=== PATIENT | female | born 1975 | race Caucasian/White ===

== ENCOUNTER 2017-07-16 14:00 | Inpatient (IN) ==
[2017-07-16 16:02] LABS: Appearance,Urine HAZY; Bilirubin,Urine NEG (NEG); Color,Urine YELLOW; Glucose,Urine (UA) NEGATIVE (NEG); Leukocyte Esterase,Urine NEG /uL (NEG); Nitrate,Urine NEG (NEG); Protein,Urine NEG (NEG); Specific Gravity,Urine 1.024 (1.000-1.035); Urine Blood NEG mg/dL (<0.03); Urobilinogen,Urine NEG (NEG)
[2017-07-16 17:09] LABS: Basophils # (Auto) 0 K/mcL (0.0-0.3); Basophils % (Auto) 0.8 % (0.0-2.0); Eosinophils # (Auto) 0.3 K/mcL (0.0-0.7); Eosinophils % (Auto) 4.5 % (0.0-7.0); Granulocytes % (Auto) 45.7 % (38.0-78.0); Lymphocytes # (Auto) 2.4 K/mcL (1.5-4.8); Lymphocytes % (Auto) 40.6 % (15.5-49.0); Mean Cell Volume 77.9 fL (80.0-100.0); Mean Corpuscular HGB Conc 32.7 g/dL (31.0-36.0); Mean Corpuscular Hemoglobin 25.5 pg (26.0-34.0); Monocytes # (Auto) 0.5 K/mcL (0.1-0.9); Monocytes % (Auto) 8.4 % (1.0-12.0); Platelet Count 220 K/mcL (140-440); RBC 4.04 M/mcL (4.00-5.20); Red Cell Distribution Width 17.4 % (11.5-14.5)
[2017-07-16 17:24] LABS: Blood Urea Nitrogen 9 mg/dl (6-20)
[2017-07-16 17:35] LABS: HCG,Serum NEGATIVE <10 (<10 mIU/ml)
[2017-07-20] MEDS ORDERED: ACETAMINOPHEN 500 MG TABLET PO SCH (05:00)
[2017-07-20] MEDS ORDERED: CELECOXIB 200 MG CAPSULE PO SCH (05:00)
[2017-07-20] MEDS ORDERED: PREGABALIN 75 MG CAPSULE PO SCH (05:00)
[2017-07-20] MEDS ORDERED: ceFAZolin 1 GM VIAL IV SCH (05:00)
[2017-07-20] MEDS ORDERED: oxyCODONE 10 MG TAB.ER.12H PO SCH (05:00)
[2017-07-20] MEDS ORDERED: KETOROLAC 30 MG, ROPIVACAINE HCL/PF 49.5 ML, EPINEPHrine 0.5 MG, 0.9 % SODIUM CHLORIDE ... IJ SCH (06:30)
[2017-07-20] MEDS ORDERED: GENTAMICIN SULFATE 800 MG/20 ML VIAL IR ONE (13:26)
[2017-07-20] MEDS ORDERED: BENZOCAINE/MENTHOL 1 LOZENGE PO PRN ×2 (13:33→14:37)
[2017-07-20] MEDS ORDERED: POLYETHYLENE GLYCOL 3350 17 GM PACKET PO PRN (13:33)
[2017-07-20] MEDS ORDERED: BISACODYL 10 MG SUPP.RECT PR PRN (13:33)
[2017-07-20] MEDS ORDERED: MAGNESIUM HYDROXIDE 30 ML ORAL.SUSP PO PRN (13:33)
[2017-07-20] MEDS ORDERED: HYDROcodone/APAP 10/325MG TABLET PO PRN (13:33)
[2017-07-20] MEDS ORDERED: FLEETS ADULT ENEMA PR PRN (13:33)
[2017-07-20] MEDS ORDERED: ONDANSETRON 4 MG/2 ML VIAL IV PRN ×2 (13:33→14:37)
[2017-07-20] MEDS ORDERED: TEMAZEPAM 15 MG CAPSULE PO PRN (13:33)
[2017-07-20] MEDS ORDERED: ACETAMINOPHEN 325 MG TABLET PO PRN (13:33)
[2017-07-20] MEDS ORDERED: TRANEXAMIC ACID 1,000 MG/10 ML VIAL IV ONE (13:33)
--- NOTE | 2017-07-20 13:33 | Brief Operative Note ---
Date of procedure: 07/20/17 Pre-op diagnosis: left djd Post-op diagnosis: same Procedure: left tka Grafts/Implants: Yes Anesthesia: GETA Complications: none Complications Description: 07/20/17 13:33 none Surgeon: Travis Sinha [employer] Official: Rafy Singer Estimated blood loss (cc): 50 Tourniquet Time (Minutes): 52 Specimens Removed/Pathology: none sent Condition: stable Disposition: PACU
[2017-07-20] MEDS ORDERED: fentaNYL 100 MCG/2 ML VIAL IV ONE (13:45)
[2017-07-20] MEDS ORDERED: DEXAMETHASONE 10 MG/ML VIAL IV ONE (13:45)
[2017-07-20] MEDS ORDERED: ONDANSETRON 4 MG/2 ML VIAL IV ONE (13:45)
[2017-07-20] MEDS ORDERED: MIDAZOLAM 2 MG/2 ML VIAL IV ONE (13:45)
[2017-07-20] MEDS ORDERED: PROPOFOL 200 MG/20 ML VIAL IV ONE (13:45)
[2017-07-20] MEDS ORDERED: ePHEDrine 50 MG/ML AMPUL IV ONE (13:45)
[2017-07-20] MEDS ORDERED: ROPIVACAINE HCL/PF 20 ML VIAL IJ ONE (13:45)
--- NOTE | 2017-07-20 14:11 | General Surgery Progress Note ---
Subjective Narrative: Note initiated : 07/20/17 at 2:02 pm Service Date, if different from initiated Date: [] Patient: Hilda Trorez 42 y/o F admitted on 07/20/17 for Left Total Knee Arthroplasty Dwight. Chief Complaint: [] Objective Temp Pulse Resp BP Pulse Ox 98 F 75 81 H 118/70 98 07/20/17 10:09 07/16/17 14:27 07/20/17 10:09 07/20/17 10:09 07/20/17 10:09 - Additional Data Intake & Output - Last 24 hours: Intake & Output 07/18/17 07/19/17 07/20/17 07/21/17 05:59 05:59 05:59 05:59 Weight 187 lb - Labs 07/16/17 14:53 07/16/17 14:53 Assessment and Plan - Narrative A/P Narrative: Anesthesia evaluation: Responded to patient's bedside for evaluation pre-operatively regarding nursing concerns of erratic behavior and past drug abuse. Patient was questioned about recent drug use and admitted to using methamphetamines on once occasion within the last week. Patient was counseled about the risk of anesthesia complications with regards to concurrent drug abuse and voiced understanding. The patient denies any further illicit drug use. Dr. Sinha was informed of these findings. A urine toxicology screen was considered in order to determine if the patient is acutely intoxicated, however, Dr. Sinha feels that at this time the patient is at a low risk and wishes to proceed with surgery without delaying for a toxicology screen. The patient also voiced understanding of the risks associated with proceeding to surgery and wishes to do so at this time. - Time Spent With Patient Total time spent is greater than 50% in coordination of care (as documented) at patient's floor/unit and/or counseling patient: 15 - 24 minutes
[2017-07-20] MEDS ORDERED: VANCOMYCIN 1,000 MG in 0.9 % SODIUM CHLORIDE 250 ML IV ONE (14:30)
[2017-07-20] MEDS ORDERED: FLUMAZENIL 0.1 MG/ML ML IV PRN (14:37)
[2017-07-20] MEDS ORDERED: PROMETHAZINE 25 MG/ML VIAL IV PRN (14:37)
[2017-07-20] MEDS ORDERED: NALOXONE HCL 0.4 MG/ML VIAL IV PRN (14:37)
[2017-07-20] MEDS ORDERED: METOPROLOL TARTRATE 5 MG/5 ML VIAL IV PRN (14:37)
[2017-07-20] MEDS ORDERED: IPRATROPIUM/ALBUTEROL 3 ML AMPUL.NEB NEB PRN (14:37)
[2017-07-20] MEDS ORDERED: METHOCARBAMOL 1,000 MG/10 ML VIAL IV PRN (14:37)
[2017-07-20] MEDS ORDERED: ePHEDrine 50 MG/ML AMPUL IV PRN (14:37)
[2017-07-20] MEDS ORDERED: HYDROmorphone 2 MG/ML SYRINGE IV PRN (14:37)
[2017-07-20] MEDS ORDERED: ATROPINE SULFATE 0.4 MG/ML VIAL IV PRN (14:37)
[2017-07-20] MEDS ORDERED: diphenhydrAMINE 50 MG/ML VIAL IV PRN (14:37)
[2017-07-20] MEDS ORDERED: LACTATED RINGERS 1,000 ML IV SCH (14:45)
[2017-07-20] MEDS: fentaNYL 100 MCG/2 ML VIAL IV PRN ×3 (15:35→15:57)
[2017-07-20] MEDS: 0.9 % SODIUM CHLORIDE 10 ML SYRINGE IV SCH ×2 (15:53→22:00)
--- NOTE | 2017-07-20 16:02 | Operative Note ---
DATE OF OPERATION: 07/20/2017 PREOPERATIVE DIAGNOSIS: Left knee degenerative arthritis. POSTOPERATIVE DIAGNOSES: Left knee degenerative arthritis with the addition of arthritis in all compartments. PROCEDURE: Left total knee arthroplasty. SURGEON: Travis Sinha M.D. ORAL SURGERY PHYSICIAN: Rafy Singer PA-C. ANESTHESIA: General LMA anesthesia. ROUTE CLERK: Lissy Duarte CRNA. TOURNIQUET TIME: 52 minutes. COMPLICATIONS: None. DESCRIPTION OF PROCEDURE: The patient was brought to the operating room and put to sleep with general LMA anesthesia. Once asleep, the patient had the left leg sterilely prepped and draped in the usual sterile fashion, confirmed as the operative site. Preop antibiotics of vancomycin and Ancef had been given and then tranexamic acid of 1 gram. Once done, we then exsanguinated the leg and inflated the tourniquet to 250 pounds of pressure. Midline incision was made. A mid vastus approach performed. Once this was done, we then inspected the mid vastus approach and inspected the joint with severe arthritis in the lateral compartment and the posterior medial compartment, and to a lesser degree the patellofemoral joint. The ACL and PCL were intact. At this point, we proceeded with a robotic total knee. We then placed two pins above and below the knee. One intraarticular pin into the femur and one into the tibia. The center of hip rotation was set. Medial and lateral malleolus was set. Thirty points on the femur, thirty points on the tibia were set. We balanced the knee at 15 and 90 degrees both medial and lateral. The implant was adjusted with 3 degrees of external rotation to completely balance within flexion-extension gaps. She was at 0 degrees extension and 2 degrees of varus. At this point, we then brought the robot in, registered the robot, and made the distal femoral cut. We made our anterior and posterior chamfer cuts, made our tibial cut. We removed the remnants of the meniscus and removed a cyst medially. We then irrigated thoroughly and then punched into place a size 3 tibial baseplate and size 3 femur. A 9 mm poly and a 33 mm patellar button was used. She measured 21 mm. This was cut to 13 and then the patellar button was placed. It covered the patella very nicely. We irrigated thoroughly and then cemented into place the above-mentioned sizes with antibiotic cement. Excess cement was removed. We preserved the posterior cruciate ligament and then closed the mid vastus approach with #1 Stratafix x2 sutures, nice medial capsular closure. We closed the skin with 2-0 Vicryl and adhesive closure. The patient tolerated this well without complication. Tourniquet time was 52 minutes. TOTAL TOURNIQUET TIME: 52 minutes. RBH:eron Job ID: [id number] Doc ID: [id number] Travis Sinha MD
[2017-07-20] MEDS ORDERED: MEPERIDINE 50 MG/ML SYRINGE ONE (16:19)
--- NOTE | 2017-07-20 16:44 | XRay Report ---
CLINICAL INFORMATION: Postop total knee prostheses COMPARISON: None. FINDINGS: Total knee prostheses is anatomically aligned. No osseous abnormalities. Periarticular gas and soft tissue swelling seen as expected. IMPRESSION: Negative Interpreted and Authenticated by: Roe Godoy 07/20/17
[2017-07-20] MEDS: 0.45 % SODIUM CHLORIDE 1,000 ML IV SCH (17:01)
[2017-07-20] MEDS: oxyCODONE/APAP 5/325MG TABLET PO PRN ×2 (17:02→21:42)
[2017-07-20] MEDS: HYDROmorphone 2 MG/ML SYRINGE IV PRN ×3 (17:03→21:59)
[2017-07-20] MEDS: KETOROLAC 15 MG/ML VIAL IV SCH ×2 (18:01→23:44)
[2017-07-20] MEDS ORDERED: SENNOSIDES 1 TABLET PO SCH (21:00)
[2017-07-20] MEDS: ASPIRIN 325 MG ENTERIC COATED TABLET PO SCH (21:41)
[2017-07-20] MEDS: ceFAZolin 1 GM VIAL IV SCH (21:42)
[2017-07-20] MEDS: DOCUSATE SODIUM 100 MG CAPSULE PO SCH (21:42)
[2017-07-21] MEDS: HYDROmorphone 2 MG/ML SYRINGE IV PRN ×3 (00:33→06:39)
[2017-07-21] MEDS: 0.45 % SODIUM CHLORIDE 1,000 ML IV SCH ×2 (01:48→10:28)
[2017-07-21] MEDS: ceFAZolin 1 GM VIAL IV SCH (04:39)
[2017-07-21] MEDS: KETOROLAC 15 MG/ML VIAL IV SCH ×2 (06:05→11:21)
[2017-07-21] MEDS: 0.9 % SODIUM CHLORIDE 10 ML SYRINGE IV SCH (06:05)
--- NOTE | 2017-07-21 07:44 | Orthopedic Progress Note ---
Subjective Patient information: Note initiated : 07/21/17 at 7:43 am Service Date, if different from initiated Date: [] Patient: Hilda Torrez 42 y/o F admitted on 07/20/17 for Left Total Knee Arthroplasty Dwight. Chief Complaint: [Pt is stable this morning on post operative day 1 without any significant concerns or complaints. Patients vital signs have remained stable. Patients dressing is dry and exhibits a grossly intact neurovascular and neuromotor exam. Patients 10 point ROS is otherwise negative. ] Objective Vital signs: Vital Signs Temp Pulse Resp BP Pulse Ox 07/21/17 03:36 97.5 F 64 12 113/67 97 07/21/17 03:00 97 07/21/17 00:00 97.8 F 78 12 116/69 95 07/20/17 23:00 95 07/20/17 19:58 100 07/20/17 19:54 99 07/20/17 19:41 99 07/20/17 19:40 99 07/20/17 19:30 97.3 F 88 12 119/77 94 07/20/17 18:30 92 H 118/77 96 07/20/17 18:00 94 H 131/82 99 07/20/17 17:30 125/82 96 07/20/17 17:15 129/86 96 07/20/17 17:00 129/85 97 07/20/17 16:45 137/81 100 07/20/17 16:30 127/78 100 07/20/17 16:21 90 15 139/88 96 07/20/17 16:05 85 12 132/82 98 07/20/17 15:50 89 14 129/77 99 07/20/17 15:35 110 H 15 127/84 99 07/20/17 10:09 98 F 81 H 118/70 98 Intake and Output 07/20/17 07/21/17 07/21/17 21:59 05:59 13:59 Intake Total 2330 / 2330 1078 / 1078 Output Total 50 / 50 1400 / 1400 Balance 2280 / 2280 -322 / -322 Intake: IV 878 / 878 Sodium Chloride 0.45% 1,000 ml 878 / 878 @ 100 mls/hr IV .Q10H [facility] Rx#: [id number] Oral 330 / 330 200 / 200 IV - Manual Only 1999 Output: Urine Catheter Amount 500 / 500 Void Amount 900 / 900 Estimated Blood Loss 50 / 50 Other: Meal Paxton, Jello Percent of Meal Consumed 100% Feeding Ability Independent Weight 194 lb 8 oz Intake & Output: Intake & Output 07/20/17 07/21/17 07/21/17 21:59 05:59 13:59 Intake Total 2330 / 2330 1078 / 1078 Output Total 50 / 50 1400 / 1400 Balance 2280 / 2280 -322 / -322 Weight 194 lb 8 oz Intake: IV 878 / 878 Sodium Chloride 0.45% 1,000 ml 878 / 878 @ 100 mls/hr IV .Q10H [facility] Rx#: [id number] Oral 330 / 330 200 / 200 IV - Manual Only 1999 Output: Urine Catheter Amount 500 / 500 Void Amount 900 / 900 Estimated Blood Loss 50 / 50 Other: Meal Paxton, Jello Percent of Meal Consumed 100% Feeding Ability Independent Incision: Yes healing Incision clean and dry: Yes Dressing: Yes clean, Yes dry Weight bearing status: full Neurological exam IM: Yes motor sensory intact, Yes neurovascular intact Extremities exam IM: Yes Foot pink and warm, Yes neurovascular intact - Labs CBC & BMP: 07/21/17 05:30 07/16/17 14:53 Labs: Orthopedic Labs 07/16/17 14:53 PT 12.2 INR 0.9 APTT 33 07/21/17 07/16/17 05:30 14:53 Hgb 10.3 L Hct 28.0 L 31.4 L Assessment and Plan (1) Hx of total knee arthroplasty The patient has been educated regarding dressing care, Physical Therapy recommendations, home exercises, restrictions, and follow up appointments. The patient has had all necessary DME prescribed. The patient has remained stable during their hospital course. The patient was discharge with a stable exam. Status: Acute
--- NOTE | 2017-07-21 07:45 | Discharge Summary ---
Ortho Discharge - TKA - Patient Instructions Diet: Regular Diet Activity: activity as tolerated, weight bearing as tolerated Total Knee Protocol: For Total Knee: Start ROM JANETTE with stationary bike or rocking chair. Work on gaining full extension of knee. Posterior dislocation precautions provided. Hip abductor strengthening and gait training instructions provided. Apply Cryocuff as instructed. Dressing Care: May shower in 2 days Patient Education: Total Knee Replacement (DC) Additional Instructions: CPM for home use - Problem Maintenance (1) Hx of total knee arthroplasty Status: Acute - Follow Up Plan Follow Up Appointments: Rafy Singer PA-C [Physician Index Clerk] - 08/04/17 3:50 pm Disposition: Home, Self-Care Prognosis: Good Rehab Potential: Good I certify that the patient requires SNF services: No Overall status at discharge: patient is progressing back to baseline - Orders For Discharge Prescriptions: Aspirin [Ecotrin] 325 mg PO BID #60 tab.ec Docusate Sodium [Colace] 100 mg PO BID #60 cap
--- NOTE | 2017-07-21 07:50 | Discharge Summary ---
Ortho Discharge - TKA - Patient Instructions Diet: Regular Diet Activity: activity as tolerated, weight bearing as tolerated Total Knee Protocol: For Total Knee: Start ROM JANETTE with stationary bike or rocking chair. Work on gaining full extension of knee. Posterior dislocation precautions provided. Hip abductor strengthening and gait training instructions provided. Apply Cryocuff as instructed. Patient Education: Total Knee Replacement (DC) Additional Instructions: CPM for home use - Problem Maintenance (1) Hx of total knee arthroplasty Status: Acute - Follow Up Plan Follow Up Appointments: Rafy Singer PA-C [Physician Middleware Administrator] - 08/04/17 3:50 pm Disposition: Home, Self-Care Prognosis: Good Rehab Potential: Good I certify that the patient requires SNF services: No - Orders For Discharge Prescriptions: Aspirin [Ecotrin] 325 mg PO BID #60 tab.ec Docusate Sodium [Colace] 100 mg PO BID #60 cap
[2017-07-21] MEDS: ASPIRIN 325 MG ENTERIC COATED TABLET PO SCH (09:28)
[2017-07-21] MEDS: DOCUSATE SODIUM 100 MG CAPSULE PO SCH (09:28)
[2017-07-21] MEDS ORDERED: FLU VACC QS2017-18 36MOS UP/PF 60 MCG/0.5 ML SYRINGE IM ONE (10:00)
== END 2017-07-21 13:20 | disposition home or self-care (01) | DRG 470 ==
LOC: MEDSUR 07-20 09:45
PROVIDERS: ADMIT Orthopaedic Surgery; ATTEND Orthopaedic Surgery